=== PATIENT | male | born 1985 | race Two or more races ===

== ENCOUNTER 2020-01-16 | Emergency (ER) | payer BC | END 2020-01-16 09:35 | disposition home or self-care (01) | CPT/HCPCS: 36415; 71046; 80053; 80306; 81003; 83735; 84484; 85025; 85610; 85730; 93005; 99285 ==

== ENCOUNTER 2020-07-24 09:55 | Day surgery (SDC) | payer BC ==
[2020-07-22 13:34] VITALS: BMI 31.4
[~2020-07-24 09:55] MED LIST: DEXAMETHASONE SOD PHOSPHATE 10 MG/ML 1 ML VIAL IV ONE; HYDROmorphone 0.5 MG/0.5 ML SYRINGE IVP PRN; LACTATED RINGERS 1,000 ML IV SCH; ONDANSETRON 4 MG/2 ML VIAL IVP ONE
[2020-07-24 10:45] VITALS: TEMP 97.9
[2020-07-24] MEDS ORDERED: LIDOCAINE 1% (10MG/ML) FOR IV START INTRADERMA ONE (10:55)
--- NOTE | 2020-07-24 11:30 | P.GSHP ---
History of Present Illness H&P Date: 07/24/20 Chief Complaint: Constipation This a 35-year-old male with history of constipation. Patient presents today for colonoscopy Past Medical History Past Medical History: Asthma, Skin Disorder Additional Past Medical History / Comment(s): hx palpitations, environmental allergies, allergy induced asthma, celiac disease, loose stools, dry flaky skin around nose, History of Any Multi-Drug Resistant Organisms: None Reported Past Surgical History: No Surgical Hx Reported Additional Past Surgical History / Comment(s): oral surgery Past Anesthesia/Blood Transfusion Reactions: No Reported Reaction Past Psychological History: Anxiety Smoking Status: Current every day smoker Past Alcohol Use History: Rare Additional Past Alcohol Use History / Comment(s): smokes 1 PPD for 12 yrs Past Drug Use History: None Reported - Past Family History Mother Family Medical History: No Reported History Medications and Allergies Home Medications Medication Instructions Recorded Confirmed Type Citalopram Hydrobromide [CeleXA] 20 mg PO DAILY 07/22/20 07/22/20 History Multivitamins, Thera [Multivitamin 1 tab PO DAILY 07/22/20 07/22/20 History (formulary)] Psyllium Husk [Reguloid] 1.2 gm PO DAILY 07/22/20 07/22/20 History Allergies Allergy/AdvReac Type Severity Reaction Status Date / Time hay,grass Allergy Unknown Uncoded 07/22/20 13:27 Surgical - Exam Vital Signs Temp Pulse Resp BP Pulse Ox 97.9 F 59 L 20 139/70 98 07/24/20 10:43 07/24/20 10:43 07/24/20 10:43 07/24/20 10:43 07/24/20 10:43 - General well developed, well nourished, no distress - Eyes PERRL - ENT normal pinna - Neck no masses - Respiratory normal expansion - Cardiovascular Rhythm: regular - Abdomen Abdomen: soft, non tender Assessment and Plan Assessment: History Of constipation. We'll perform colonoscopy.
[2020-07-24] MEDS ORDERED: PROPOFOL 10 MG/ML 20 ML VIAL IV ONE (11:32)
--- NOTE | 2020-07-24 11:48 | P.OP ---
Date of Procedure: 07/24/20 Preoperative Diagnosis: Constipation Postoperative Diagnosis: Normal colon Procedure(s) Performed: Colonoscopy Anesthesia: MAC Surgeon: Klaus Galindo Pathology: none sent Condition: stable Disposition: PACU Description of Procedure: PROCEDURE: The patient was placed on the endoscopy table in the lateral position. Digital rectal examination was performed which revealed no abnormalities. The prostate was symmetrical without nodules. Flexible colonoscope was then placed in the patient's anus and passed throughout the entire colon. The ileocecal valve was visualized. The cecum, ascending, transverse, descending and sigmoid colon were normal. The rectum was normal as well. There were no masses, polyps or diverticula noted in the entire colon. SUMMARY OF FINDINGS: Normal colonoscopy.
[2020-07-24 11:55] VITALS: RESP 16
[2020-07-24 12:08] VITALS: BP 113/72; PULSE 57
== END 2020-07-24 12:38 | disposition home or self-care (01) ==
LOC: ORWHC2ENDO 09:55
PROVIDERS: ATTEND Surgery
DX: K90.0 Celiac disease (principal); F32.9 Major depressive disorder, single episode, unspecified; I10 Essential (primary) hypertension; Z87.19 Personal history of other diseases of the digestive system; F60.0 Paranoid personality disorder; F41.0 Panic disorder [episodic paroxysmal anxiety]; F17.210 Nicotine dependence, cigarettes, uncomplicated; Z79.899 Other long term (current) drug therapy; J45.909 Unspecified asthma, uncomplicated; Z91.048 Other nonmedicinal substance allergy status
CPT/HCPCS: 45378; J2704

== ENCOUNTER → 2021-06-24 | Outpatient (CLI) | payer BC ==
[2021-06-24 18:26] LABS: African American GFR (CKD) 135.1 (60.0-200.0); Chol/HDL Ratio 5.38; LDL Cholesterol,Calculated 143.4 mg/dL (0.0-131.0); Non-African American GFR(CKD) 116.6 (60.0-200.0); Potassium 4.5 mmol/L (3.5-5.5); VLDL Calculation 27.6 mg/dL (5.00-40.00)
[2021-06-24 19:44] LABS: Hemoglobin A1C 5.5 % (4.0-6.0)
== END | disposition home or self-care (01) ==
LOC: LABWHC1 09:58
PROVIDERS: ATTEND Family Medicine
DX: I10 Essential (primary) hypertension (principal); F41.1 Generalized anxiety disorder; K90.9 Intestinal malabsorption, unspecified
CPT/HCPCS: 36415; 80051; 80061; 82565; 83036; 84443; 84520; 86769

== ENCOUNTER → 2021-06-29 | Outpatient (CLI) | payer BC | END | disposition home or self-care (01) | LOC: LABWHC1 09:51 | PROVIDERS: ATTEND Family Medicine | DX: R00.0 Tachycardia, unspecified (principal) | CPT/HCPCS: 93005 ==

== ENCOUNTER → 2021-07-03 | Outpatient (CLI) | payer BC ==
[2021-07-03 11:39] LABS: Glucose 2 Hour 88 mg/dL
== END | disposition home or self-care (01) ==
LOC: LABWHC1 08:16
PROVIDERS: ATTEND Family Medicine
DX: K90.0 Celiac disease (principal); R61 Generalized hyperhidrosis
CPT/HCPCS: 36415; 82947; 82950

== ENCOUNTER → 2022-01-23 | Outpatient (CLI) | payer BC ==
[2022-01-23 17:13] LABS: Basophils # (A) 0.02 X 10*3/uL (0.00-0.10); Basophils % (A) 0.6 %; Eosinophils # (A) 0.05 X 10*3/uL (0.04-0.35); Eosinophils % (A) 1.4 %; HCT 47.5 % (39.6-50.0); HGB 15.5 g/dL (13.0-17.0); Immature Grans, Automated 0.3 %; Lymphocytes # (A) 1.35 X 10*3/uL (0.90-5.00); MCHC 32.6 g/dL (32.0-37.0); Mean Platelet Volume 9.9 fL (9.5-12.2); Monocytes # (A) 0.33 X 10*3/uL (0.20-1.00); Monocytes % (A) 9.3 %; NRBC Per 100 WBC 0 /100 WBCS (0.0-0.0); Neutrophils # (A) 1.79 X 10*3/uL (1.80-7.70); Neutrophils % (A) 50.4 %; Platelet Count 187 X 10*3/uL (140-440); RDW 12.5 % (11.5-14.5); WBC 3.55 X 10*3/uL (4.50-10.00)
[2022-01-23 17:22] LABS: Erythrocyte Sedimentation Rate 6 mm/Hr (0-15)
[2022-01-23 17:34] LABS: ALT 39 U/L (10-49); AST 22 U/L (14-35); African American GFR (CKD) 131.8 (60.0-200.0); Albumin 4.6 g/dL (3.8-4.9); Albumin/Globulin Ratio 2.32 (1.60-3.17); Alkaline Phosphatase 44 U/L (41-126); BUN/Creat Ratio 24.26 Ratio (12.00-20.00); Blood Urea Nitrogen 20.6 mg/dL (9.0-27.0); Carbon Dioxide 21.1 mmol/L (20.0-27.5); Chloride 106 mmol/L (96-109); Chol/HDL Ratio 5.86 Ratio; Glucose 95 mg/dL (70-110); LDL Cholesterol,Calculated 155.2 mg/dL (0.0-131.0); Non-African American GFR(CKD) 113.7 (60.0-200.0); Potassium 4.6 mmol/L (3.5-5.5); Sodium 138 mmol/L (135-145); Total Bilirubin <0.15 mg/dL (0.30-1.20); Total Protein 6.6 g/dL (6.2-8.2)
[2022-01-23 18:51] LABS: Appearance,Urine Clear (Clear); Bilirubin,Urine Negative (Negative); Blood,Urine Negative (Negative); Color,Urine Yellow (Yellow); Ketones,Urine Negative (Negative); Leukocyte Esterase,Urine Negative (Negative); Nitrite,Urine Negative (Negative); PH, Urine 5.5 (5.0-8.0); Protein,Urine Negative (Negative); Specific Gravity,Urine 1.023 (1.001-1.030); Urobilinogen,Urine 0.2 (0.2,1.0)
[2022-01-24 23:09] LABS: C-Peptide 4.38 ng/mL (0.81-3.85)
== END | disposition home or self-care (01) ==
LOC: LABWHC1 08:40
PROVIDERS: ATTEND Family Medicine
DX: I10 Essential (primary) hypertension (principal); Z79.899 Other long term (current) drug therapy; B89 Unspecified parasitic disease
CPT/HCPCS: 36415; 80053; 80061; 81003; 83036; 83516; 84681; 85025; 85652; 87086

== ENCOUNTER → 2022-05-21 | Outpatient (CLI) | payer BC | END | disposition home or self-care (01) | LOC: LABWHC1 09:36 | PROVIDERS: ATTEND Family Medicine | DX: I10 Essential (primary) hypertension (principal); G47.33 Obstructive sleep apnea (adult) (pediatric); Z79.899 Other long term (current) drug therapy | CPT/HCPCS: 36415; 82306; 82607; 82746; 84403; 84443 ==

== ENCOUNTER → 2022-08-17 | Outpatient (CLI) | payer BC ==
--- NOTE | 2022-08-17 11:55 | XR ---
EXAMINATION TYPE: XR chest 2V DATE OF EXAM: 08/17/2022 COMPARISON: Chest x-ray 01/16/2020 HISTORY: [id number] TECHNIQUE: Frontal and lateral views of the chest are obtained. FINDINGS: There is no focal air space opacity, pleural effusion, or pneumothorax seen. The cardiac silhouette size is within normal limits. The osseous structures are intact. IMPRESSION: No acute cardiopulmonary process.
== END | disposition home or self-care (01) ==
LOC: RADXRMAIN 10:24
PROVIDERS: ATTEND Family Medicine
DX: R07.9 Chest pain, unspecified (principal)
CPT/HCPCS: 71046

== ENCOUNTER → 2022-09-16 | Outpatient (CLI) | payer BC ==
--- NOTE | 2022-09-16 11:46 | CA ---
Exercise Stress Test Report Name: Surya Horton Exam Date: 09/16/2022 10:20 Exam Location: [facility] Stress Ht (in): 64 Wt (lb): 210 BSA: 2.00 Ordering Phys: Charli Lal MD Referring Phys: DEISY, Technologist: Ja Winslow Age: 37 Gender: M : 1985 Procedure CPT: Indications: I47.9 tachycardia, J45.909 Unspecified asthma ICD-10 Codes: Patient History: Palpitations Medications: Meds past 24 hrs: Pretest Chest Pain: STRESS TEST Raf Protocol Exercise Duration (min:sec): 10:[address] Depressions (mm): Angina Score: Poe Score: Resting HR (bpm): 57 Peak HR (bpm): 189 Resting BP (mmHg): 134 / 77 Peak BP (mmHg): 195 / 61 MPHR: 185 Target HR: 157 % MPHR: 102 METS: 11.8 Total Dose: Peak Dose: Atropine: Double Product: 38243 BP Response: Stress Termination: Reached target heart rate Stress Symptoms: No chest pain or symptoms Stress Summary: ECG ANALYSIS Resting ECG: Stress ECG: CONCLUSIONS Excellent exercise tolerance Normal EKG in response to exercise Dr. Monty Gannon MD (Electronically Signed) Final Date: 16 September 2022 11:45
--- NOTE | 2022-09-16 12:04 | CA ---
Transthoracic Echo Report Name: Surya Horton Age: 37 Gender: M : 1985 Exam Date: 09/16/2022 08:46 Exam Location: [facility] Echo Ht (in): 64 Wt (lb): 210 Ordering Physician: Charli Lal MD Attending/Referring Phys: Data Analytics Chief Scientist Debra Jorge RDCS Procedure CPT: Indications: I47.9 tachycardia, J45.909 Unspecified asthma Cardiac Hx: Technical Quality: Contrast 1: Total Dose (mL): Contrast 2: Total Dose (mL): MEASUREMENTS (Male / Female) Normal Values 2D ECHO LV Diastolic Diameter PLAX 4.7 cm 4.2 - 5.9 / 3.9 - 5.3 cm LV Systolic Diameter PLAX 3.4 cm IVS Diastolic Thickness 1.1 cm 0.6 - 1.0 / 0.6 - 0.9 cm LVPW Diastolic Thickness 1.1 cm 0.6 - 1.0 / 0.6 - 0.9 cm LV Relative Wall Thickness 0.5 RV Internal Dim ED PLAX 2.8 cm LA Volume 43.1 cm??? 18 - 58 / 22 - 52 cm??? M-MODE Aortic Root Diameter MM 2.2 cm LA Systolic Diameter MM 3.5 cm LA Ao Ratio MM 1.6 AV Cusp Separation MM 1.8 cm DOPPLER AV Peak Velocity 116.6 cm/s AV Peak Gradient 5.4 mmHg AV Mean Velocity 82.5 cm/s AV Mean Gradient 2.9 mmHg AV Velocity Time Integral 26.6 cm LVOT Peak Velocity 111.9 cm/s LVOT Peak Gradient 5.0 mmHg LVOT Velocity Time Integral 22.5 cm MV Area PHT 3.0 cm??? Mitral E Point Velocity 111.7 cm/s Mitral A Point Velocity 40.0 cm/s Mitral E to A Ratio 2.8 MV Deceleration Time 252.8 ms MV E' Velocity 10.0 cm/s Mitral E to MV E' Ratio 11.2 TR Peak Velocity 162.3 cm/s TR Peak Gradient 10.5 mmHg Right Ventricular Systolic Press 15.2 mmHg FINDINGS Left Ventricle Mildly increased left ventricular wall thickness. Normal left ventricular systolic function with no obvious regional wall motion abnormalities. Normal left ventricular diastolic filling pattern. Left ventricular ejection fraction is estimated at 55-60 %. Right Ventricle Normal right ventricular size and function. Right ventricular systolic pressure within normal limits. Right Atrium Normal right atrial size. Left Atrium Normal left atrial size. Mitral Valve Structurally normal mitral valve. No mitral stenosis. Trace to mild mitral regurgitation. Aortic Valve Trileaflet aortic valve. No aortic valve stenosis or regurgitation. Tricuspid Valve Structurally normal tricuspid valve. Mild tricuspid regurgitation. Pulmonic Valve Trace pulmonic regurgitation. Structurally normal pulmonic valve. Pericardium No pericardial effusion. Aorta Normal size aortic root and proximal ascending aorta. CONCLUSIONS Normal left ventricular dimension and systolic function Previewed by: Dr. Monty Gannon MD (Electronically Signed) Final Date: 16 September 2022 12:04
--- NOTE | 2022-09-16 16:02 | NM ---
EXAMINATION TYPE: NM stress cardiolite complete DATE OF EXAM: 09/16/2022 COMPARISON: NONE HISTORY: Tachycardia asthma TECHNIQUE: After the intravenous administration of 10.2 mCi Tc 99m Sestamibi - Cardiolite resting SP ECT images acquired 45 minutes post injection. At peak stress 25.5 mCi Tc 99m Sestamibi - Stress images obtained 10 minutes post injection The patient was stressed with 0.4mg Lexiscan. FINDINGS: No fixed defects are evident polar maps are normal. No reversible stress defects on Spect images There is some mild hypokinesia of the anterior wall. Ejection fraction is calculated to be 57 %. IMPRESSION: 1. No stress-induced ischemic changes. 2. Mild hypokinesia of the distal anterior wall
== END | disposition home or self-care (01) ==
LOC: RADNMMAIN 08:11
PROVIDERS: ATTEND Family Medicine
DX: I51.89 Other ill-defined heart diseases (principal); I47.9 Paroxysmal tachycardia, unspecified; J45.909 Unspecified asthma, uncomplicated
CPT/HCPCS: 93017; 93306; 78452; A9500

== ENCOUNTER → 2023-06-02 | Outpatient (CLI) | payer BC ==
[2023-06-02 18:29] LABS: ALT 40 U/L (10-49); AST 27 U/L (14-35); Albumin 4.7 d/dL (3.8-4.9); Albumin/Globulin Ratio 2.24 Ratio (1.60-3.17); Alkaline Phosphatase 47 U/L (41-126); BUN/Creat Ratio 18.38 Ratio (12.00-20.00); Blood Urea Nitrogen 14.7 mg/dL (9.0-27.0); Calcium 9.5 mg/dL (8.7-10.3); Carbon Dioxide 27.3 mmol/L (21.6-31.8); Chloride 105 mmol/L (96-109); Globulin 2.1 d/dL (1.6-3.3); Glucose 90 mg/dL (70-110); LDL Cholesterol,Calculated 174.8 mg/dL (0.0-131.0); Potassium 4.7 mmol/L (3.5-5.5); Sodium 142 mmol/L (135-145); Total Bilirubin 0.3 mg/dL (0.3-1.2); Total Protein 6.8 d/dL (6.2-8.2)
[2023-06-02 18:42] LABS: Testosterone >1400.00 ng/dL (123.06-813.86)
== END | disposition home or self-care (01) ==
LOC: LABWHC1 10:00
PROVIDERS: ATTEND Family Medicine
DX: I10 Essential (primary) hypertension (principal); R00.2 Palpitations
CPT/HCPCS: 36415; 80053; 80061; 83036; 84403

== ENCOUNTER → 2024-01-28 | Outpatient (CLI) | payer BC | END | disposition home or self-care (01) | LOC: LABWHC1 09:27 | PROVIDERS: ATTEND Family Medicine | DX: Z53.9 Procedure and treatment not carried out, unspecified reason (principal) ==

== ENCOUNTER → 2024-03-03 | Outpatient (CLI) | payer BC | END | disposition home or self-care (01) | LOC: LABWHC1 10:58 | PROVIDERS: ATTEND Family Medicine | DX: E34.9 Endocrine disorder, unspecified (principal) | CPT/HCPCS: 36415; 84403 ==